=== PATIENT | male | born 1945 | race Caucasian/White ===

== ENCOUNTER 2017-05-22 20:04 | Emergency (ER) | payer MEDICARE, OTHER ==
--- NOTE | 2017-05-22 20:26 | Emergency Department Record ---
History of Present Illness - General Chief Complaint: Abdominal Pain Stated Complaint: LLQ ABDOMINAL PAIN Time Seen by Provider: 05/22/17 20:08 Source: Patient Mode of Arrival: Ambulatory Limitations: No limitations - History of Present Illness Initial Comments: 71 yo male presents to ED for evaluation of LUQ/LLQ pain following a trip and fall over a flower box 1.5 hours ago. Patient reports that the raised lip of the flower box struck him in the LUQ region. Patient denies initial pain symptoms, but with twisting of the trunk to the left, patient experienced a sudden-onset of LUQ pain symptoms described as sharp. Patient denies rib pain or difficulty breathing, denies anticoagulation use. Patient reports that his symptoms are intermittent in nature. MD Complaint: Abdominal pain Onset/Timin -: Hour(s) Location: LUQ Radiation: LLQ Severity: Severe Quality: Sharp, Stabbing Consistency: Intermittent Improves With: Rest Worsens With: Movement Context: Other - Related Data Home Medications Medication Instructions Recorded Confirmed Last Taken Levothyroxine Sodium [Synthroid] 125 mcg PO QAM 05/22/17 05/22/17 05/22/17 Allergies Allergy/AdvReac Type Severity Reaction Status Date / Time No Known Drug Allergies Allergy Verified 05/22/17 20:12 Travel Screening - Travel/Exposure Within Last 30 Days Have you traveled within the last 30 days?: No - Travel Symptoms Symptom Screening: None Review of Systems Constitutional: Denies: Chills, Fever, Malaise, Night sweats Eyes: Denies: Eye discharge, Eye pain ENT: Denies: Congestion, Ear pain, Epistaxis Respiratory: Denies: Cough, Dyspnea Cardiovascular: Denies: Chest pain, Dyspnea on exertion Endocrine: Denies: Fatigue, Heat or cold intolerance Gastrointestinal: Reports: Abdominal pain. Denies: Constipation, Nausea, Vomiting Genitourinary: Denies: Incontinence, Retention Musculoskeletal: Denies: Arthralgia, Back pain, Gout, Joint swelling Skin: Denies: Bruising, Change in color Neurological: Denies: Abnormal gait, Confusion, Headache, Seizure Psychiatric: Denies: Anxiety Hematological/Lymphatic: Denies: Anemia, Blood Clots Past Medical History - SOCIAL HISTORY Smoking Status: Never smoker Alcohol Use: None Drug Use: None - RESPIRATORY Hx Respiratory Disorders: No - CARDIOVASCULAR Hx Cardio Disorders: No - NEURO Hx Neuro Disorders: No - GI Hx GI Disorders: No - Hx Genitourinary Disorders: No - ENDOCRINE Hx Endocrine Disorders: Yes Hx Thyroid Disease: Yes - MUSCULOSKELETAL Hx Musculoskeletal Disorders: No - PSYCH Hx Psych Problems: No - HEMATOLOGY/ONCOLOGY Hx Hematology/Oncology Disorders: No Family Medical History Any Significant Family History?: No Physical Exam - General General Appearance: Alert, Oriented x3, Cooperative, No acute distress Limitations: No limitations - Head Head exam: Atraumatic, Normocephalic, Normal inspection Head exam detail: negative: Abrasion, Contusion, Sumner's sign, General tenderness, Hematoma, Laceration - Eye Eye exam: Normal appearance. negative: Conjunctival injection, Periorbital swelling, Periorbital tenderness, Scleral icterus - ENT Ear exam: negative: Auricular hematoma, Auricular trauma Nasal Exam: negative: Active bleeding, Discharge, Dried blood, Foreign body Mouth exam: negative: Drooling, Laceration, Muffled voice, Tongue elevation - Neck Neck exam: Normal inspection. negative: Meningismus, Tenderness - Respiratory Respiratory exam: Normal lung sounds bilaterally. negative: Rales, Respiratory distress, Rhonchi, Stridor - Cardiovascular Cardiovascular Exam: Regular rate, Normal rhythm, Normal heart sounds - GI/Abdominal GI/Abdominal exam: Soft. negative: Pulsatile mass, Rebound, Rigid, Tenderness - Rectal Rectal exam: Deferred - exam: Deferred - Extremities Extremities exam: Normal inspection. negative: Calf tenderness, Pedal edema, Tenderness - Back Back exam: Denies: CVA tenderness (R), CVA tenderness (L) - Neurological Neurological exam: Alert, Normal gait, Oriented X3 - Psychiatric Psychiatric exam: Normal affect, Normal mood - Skin Skin exam: Normal color. negative: Abrasion Type of lesion: negative: abrasion Course Vital Signs 05/22/17 20:13 Temperature 98 F Pulse Rate 75 Respiratory 20 Rate Blood Pressure 156/108 Pulse Ox 94 L - Reevaluation(s) Reevaluation #1: 05/22/17 20:55 Labs reviewed and are grossly unremarkable for an acute process. Reevaluation #2: 05/22/17 21:08 After discussion with the patient and family, patient is willing to have imaging study performed without contrast. Patient and his (nurse) verbalize understanding that the study for traumatic injury will be limited as a result, and they are in agreement to pursue non-contrast study. Patient is resting comfortably at this time. Reevaluation #3: 05/22/17 21:59 CT Abdomen and Pelvis: No acute traumatic injury Diverticulosis withotu diverticulitis Left renal cysts Coronary calcifications Mass vs. cyst right renal sinus measuring 2x2.5 cm Patient and his were updated on all results, patient's pain symptoms have not returned and he is resting comfortably at this time. recommended follow-up for right renal sinus structure/mass and further cardiac evaluation for CT imaging findings with his PCP in 1-2 weeks as directed. Patient and his verbalize understanding of all results, and the patient appears stable for discharge at this time. Medical Decision Making - Lab Data Result diagrams: 05/22/17 20:25 05/22/17 20:25 Disposition Disposition: Discharge Clinical Impression: Abdominal wall contusion Qualifiers: Encounter type: initial encounter Qualified Code(s): S30.1XXA - Contusion of abdominal wall, initial encounter Disposition: Home, Self-Care Condition: (2) Stable Instructions: Contusion in Adults (ED) Additional Instructions: Return to ED if your symptoms worsen or if you have any concerns. Ibuprofen as directed. Follow-up with your family doctor in 3-5 days as directed. Discuss CT imaging findings with your family doctor for further evaluation in 1- 2 weeks: 1) Coronary artery calcifications 2) Mass/structure right renal pelvis measuring 2.0 x 2.5 cm. Forms: Patient Portal Access Time of Disposition: 22:02 Quality - Quality Measures Quality Measures: N/A - Blood Pressure Screening Does Patient Have Any of the Following: Active Dx of HTN Blood Pressure Classification: Hypertensive Reading Systolic Measurement: 156 Diastolic Measurement: 108 Screening for High Blood Pressure: Patient Exclusion, Hx of HTN [[id number]]
[2017-05-22 20:32] LABS: BASO % 0.9 % (0-6); EOS % 2.7 % (0-6); GRAN % 59.9 % (47-80); HEMATOCRIT 40.5 % (42.0-52.0); LYMPH % 28.2 % (16-45); MEAN CELL VOLUME 83.5 fl (81-97); MEAN CORPUSCULAR HEMOGLOBIN 28.9 pg (27-33); MEAN CORPUSCULAR HGB CONC 34.6 g/dl (32-36); MEAN PLATELET VOLUME 9.2 fl (7.4-10.4); MONO % 8.3 % (0-9); PLATELET COUNT 228 K/uL (130-400); RED BLOOD COUNT 4.85 M/uL (4.40-5.70); RED CELL DISTRIBUTION WIDTH 12.9 % (11.5-14.5); WHITE BLOOD COUNT W/O DIFF 6.4 K/uL (4.2-12.2)
[2017-05-22 20:44] LABS: BLOOD UREA NITROGEN 19 mg/dL (8-23); CREATININE 1.2 mg/dL (0.7-1.2); EST GLOMERULAR FILTRATION RATE > 60 mL/min; GLUCOSE,RANDOM 93 mg/dL (74-109); TOTAL PROTEIN 6.9 g/dL (6.6-8.7)
[2017-05-22 20:47] LABS: ALB/GLOB RATIO 1.2 (1.1-1.8); ALBUMIN 3.8 g/dL (4.0-5.0); ALKALINE PHOSPHATASE 65 U/L (40-129); ALT/SGPT 12 U/L (<41); AST/SGOT 21 U/L (10.0-50.0); LIPASE 67 U/L (13-60)
[2017-05-22 20:53] LABS: URINE APPEARANCE CLEAR; URINE BILIRUBIN NEGATIVE (NEGATIVE); URINE BLOOD NEGATIVE (NEGATIVE); URINE COLOR YELLOW; URINE GLUCOSE (UA) NEGATIVE (NEGATIVE); URINE KETONE NEGATIVE (NEGATIVE); URINE LEUKOCYTE ESTERASE NEGATIVE (NEGATIVE); URINE NITRITE NEGATIVE (NEGATIVE); URINE PROTEIN NEGATIVE (NEGATIVE); URINE UROBILINOGEN 0.2 E.U./dL (0.20 - 1.00)
--- NOTE | 2017-05-24 09:30 | CT SCAN REPORT ---
DATE: 05/22/2017 at 2118. EXAM: CT OF THE ABDOMEN AND PELVIS WITHOUT CONTRAST. HISTORY: Left-sided abdomen pain post fall. TECHNIQUE: Helical CT examination of the abdomen and pelvis is performed without oral or intravenous contrast administration. The patient refused oral contrast. COMPARISON: None. FINDINGS: Lack of oral and intravenous contrast utilization limits evaluation of bowel and solid viscera respectively. Minor patchy opacities in the dependent lung bases consistent with atelectasis or, less likely, infiltrate. No pleural or pericardial effusion is seen. The heart is not enlarged. Moderate left coronary artery calcification is present. Punctate calcifications are scattered within the liver and spleen consistent with healed granulomatous disease. No suspicious focal abnormality demonstrated in the liver nor spleen. The pancreas and adrenal glands are normal in appearance. The gallbladder is unremarkable, and no biliary ductal dilatation is seen. There are several small fluid density areas within the left renal sinus. The largest of these measures 2.3 x 1.4 cm. These are likely peripelvic renal cysts rather than caliectasis. There is an isodense structure projecting into the mid aspect of the right renal sinus measuring approximately 2.0 x 2.5 cm. This may represent a developmental prominent column of Jb, though a solid mass would be difficult to exclude. The kidneys are otherwise normal in appearance. No intra-abdominal nor retroperitoneal lymphadenopathy. There is diffuse atherosclerosis. There is mild ectasia of the mid to distal infrarenal abdominal aorta measuring 2.3 cm in maximum diameter. No periaortic mass nor fluid collection. There is moderate enlargement of the prostate with elevation of the bladder floor. No definite focal urinary bladder abnormality is seen, though evaluation is limited by incomplete distension. No pelvic mass, lymphadenopathy, or free pelvic fluid. No gross bowel dilatation nor bowel wall thickening. There is diverticulosis of the distal colon without evidence of diverticulitis. The appendix is visualized and is normal in appearance. No free intraperitoneal air. The abdominal wall appears intact. A tiny, fat-filled umbilical hernia is present. No lytic or blastic bone lesion. There are degenerative changes scattered throughout the visualized spine and hips, mild to moderate in degree. No definite acute osseus fracture. IMPRESSION: 1. NO DEFINITE CT EVIDENCE OF AN ACUTE INTRA-ABDOMINAL NOR INTRAPELVIC PROCESS. 2. COLONIC DIVERTICULOSIS WITHOUT EVIDENCE OF DIVERTICULITIS. 3. MODERATE ENLARGEMENT OF THE PROSTATE. 4. SMALL HYPODENSE AREAS WITHIN THE LEFT RENAL SINUS LIKELY RELATED TO PERIPELVIC RENAL CYSTS RATHER THAN CALIECTASIS. THERE IS A SOFT TISSUE DENSITY STRUCTURE PROJECTING INTO THE MID RIGHT RENAL SINUS MEASURING 2.1 x 2.5 CM. THIS MAY REPRESENT A NORMAL VARIANT COLUMN OF JB, THOUGH A MASS CANNOT BE ENTIRELY EXCLUDED. IF CLINICALLY WARRANTED, THIS COULD BE FURTHER EVALUATED WITH PRE- AND POSTCONTRAST ADMINISTRATION CT OR MRI EXAMINATION. ALTERNATIVELY , THIS COULD BE FURTHER EVALUATED WITH ULTRASOUND EXAMINATION. 5. 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 LEFT CORONARY ARTERY CALCIFICATIONS. 6. MINOR ECTASIA OF THE MID TO DISTAL INFRARENAL ABDOMINAL AORTA. JOB NUMBER: [id number] MTDD
== END 2017-05-22 22:13 | disposition home or self-care (01) ==
LOC: ER 20:04
DX: S30.1XXA Contusion of abdominal wall, initial encounter (principal); R10.32 Left lower quadrant pain; W01.10XA Fall on same level from slipping, tripping and stumbling with subsequent striking against unspecified object, initial encounter
CPT/HCPCS: 74176; 80053; 81003; 83690; 85025; 99283; 99284

== ENCOUNTER 2019-05-09 09:32 | Day surgery (SDC) | payer MEDICARE, OTHER ==
[2019-05-09] MEDS ORDERED: MIDAZOLAM HCL 2MG/2ML VIAL IV ONE (09:33)
[2019-05-09] MEDS ORDERED: LIDOCAINE 2% MDV (20MG/ML) 20ML VIAL IV ONE (09:33)
[2019-05-09] MEDS ORDERED: FENTANYL PF 100MCG/2ML VIAL IV ONE (09:33)
[2019-05-09] MEDS ORDERED: PROPOFOL 10 MG/ML VIAL IV ONE (09:33)
[2019-05-09] MEDS ORDERED: RINGERS SOLUTION,LACTATED 1,000 ML IV ONE (10:00)
[2019-05-09] MEDS ORDERED: CEFAZOLIN 2 Gram 2 GM/50 ML BAG IVPB ONE (10:30)
== END 2019-05-09 12:47 | disposition home or self-care (01) ==
LOC: SUR 09:32
PROVIDERS: ATTEND Urology
DX: R97.20 Elevated prostate specific antigen [PSA] (principal); N40.0 Benign prostatic hyperplasia without lower urinary tract symptoms; N40.2 Nodular prostate without lower urinary tract symptoms; E03.9 Hypothyroidism, unspecified; N52.9 Male erectile dysfunction, unspecified; Z86.73 Personal history of transient ischemic attack (TIA), and cerebral infarction without residual deficits
CPT/HCPCS: J7120